=== PATIENT | male | born 1960 | race African-American/Black ===

== ENCOUNTER 2021-03-29 09:05 | Emergency (ER) | payer OTHER ==
[~2021-03-29] VITALS: Ht 177.8 cm; Wt 102.5 kg
[2021-03-29 09:05] VITALS: BP 200/98
== END 2021-03-29 10:13 | disposition home or self-care (01) ==
LOC: ER 09:05
DX: H60.91 Unspecified otitis externa, right ear (principal); I10 Essential (primary) hypertension

== ENCOUNTER → 2021-05-03 | Outpatient (CLI) | payer MEDICAID ==
[2021-05-03 14:02] LABS: Hematocrit 43.3 % (41.0-53.0); Mean Corpuscular Hemoglobin 31.7 pg (28.0-32.0); Mean Corpuscular Hgb Conc. 34.6 g/dL (32.0-36.0); Mean Corpuscular Volume 91.7 fL (80.0-100.0); Red Blood Cells 4.72 10^6/uL (4.5-5.90); Red Cell Distribution Width 13.1 % (11.8-14.3); White Blood Cell 5.6 10^3/uL (4.4-10.8)
[2021-05-03 14:17] LABS: Basophils % (manual) 0 (0.0-2.0); Blast Cells 0; Metamyelocytes % 0; Myelocytes % 0; Reactive Lymphocytes 0
[2021-05-03 14:33] LABS: Albumin 3.9 g/dL (3.4-5.0); Potassium 3.7 mmol/L (3.5-5.1)
[2021-05-03 14:37] LABS: BUN/Creatinine Ratio 9.5; Bilirubin, Total 0.6 mg/dL (0.2-1.0); Total Protein 7.9 g/dL (6.4-8.2)
[2021-05-03 14:43] LABS: Hepatitis B Surface Antibody Positive
[2021-05-03 14:49] LABS: Band Neutrophils % (manual) 1; Eosinophils % (manual) 5 (0-7); Lymphocytes % (manual) 25 (10.0-50.0); Monocytes % (manual) 3 (0-12); Promyelocytes % 1
[2021-05-03 16:06] LABS: Hepatitis A Ab IgM Negative; Hepatitis B Core Total AB Negative
[2021-05-03 16:07] LABS: Hepatitis C Antibody Negative (Negative)
== END | disposition home or self-care (01) ==
LOC: LAB 13:41
PROVIDERS: ATTEND Nurse Practitioner Family
DX: I10 Essential (primary) hypertension (principal); E66.1 Drug-induced obesity; R35.1 Nocturia; Z20.5 Contact with and (suspected) exposure to viral hepatitis
CPT/HCPCS: 36415; 80053; 80061; 83036; 84153; 84443; 85007; 85027; 86704; 86706; 86709; 86803